=== PATIENT | male | born 1935 | race Caucasian/White ===

== ENCOUNTER 2019-11-05 05:16 | Inpatient (IN) ==
[2019-11-05] MEDS ORDERED: methylPREDNISolone 125 MG/2 ML VIAL IVP ONE (05:30)
[2019-11-05] MEDS ORDERED: 0.9 % Sodium Chloride 1,000 ML IVC ONE (05:36)
[2019-11-05] MEDS ORDERED: Ipratropium Neb 0.5 MG NEBULIZER IH ONE (05:45)
[2019-11-05] MEDS ORDERED: Levalbuterol Neb 1.25 MG/3 ML IH ONE (05:45)
[2019-11-05] MEDS ORDERED: Isovue-370 500 ML BOTTLE IVP ONE (05:46)
[2019-11-05 05:54] LABS: Basophils # 0.1 K/mcL (0.0-0.2); Basophils % 0.5 %; Eosinophils # 0.1 K/mcL (0.0-0.6); Eosinophils % 1.2 %; Hematocrit 40.9 % (37.5-50.1); Immature Granulocytes % 0.4 % (0-4); Lymphocytes # 1.7 K/mcL (0.6-4.6); Lymphocytes % 14.7 %; Mean Corpuscular HGB Conc 34.2 g/dL (31.6-35.5); Mean Corpuscular Hemoglobin 32.2 pg (28.0-33.3); Mean Platelet Volume 9.4 fL (9.4-12.4); Monocytes # 0.9 K/mcL (0.0-1.3); Neutrophils # 8.5 K/mcL (1.6-8.9); Platelet Count 224 K/mcL (140-400); Red Blood Count 4.35 M/mcL (4.19-5.50); Red Cell Distribution Width 13.3 % (11.5-14.5); Segmented Neutrophils % 75.2 %; White Blood Count 11.3 K/mcL (4.3-11.1)
[2019-11-05 05:56] LABS: INR 1.2; Prothrombin Time 13.1 Seconds (9.4-12.1)
[2019-11-05] MEDS ORDERED: Furosemide 40 MG/4 ML VIAL IVP ONE (06:31)
[2019-11-05 06:37] LABS: Alanine Aminotransferase 15 Units/L (7-52); Albumin 4.3 g/dL (3.5-5.7); Albumin/Globulin Ratio 1.4 (1.1-2.2); Alkaline Phosphatase 69 Units/L (34-104); Aspartate Amino Transferase 14 Units/L (13-39); BUN/Creatinine Ratio 9 (6-26); Bilirubin,Direct 0.2 mg/dL (0.0-0.2); Bilirubin,Indirect 0.7 mg/dL (0.0-1.0); Bilirubin,Total 0.9 mg/dL (0.3-1.0); Blood Urea Nitrogen 8 mg/dL (8-23); Calcium 9.4 mg/dL (8.6-10.3); Carbon Dioxide 26 mEq/L (23-29); Chloride 95 mEq/L (98-107); Globulin 3.1 g/dL (2.4-3.5); Glucose 189 mg/dL (70-105); Lipase 11 Units/L (11-82); Osmolality,Calculated 283 (280-300); Potassium 4.2 mEq/L (3.5-5.1); Sodium 135 mEq/L (136-145); Total Protein 7.4 g/dL (6.4-8.9); eGFR For African Americans > 60 (> 60); eGFR For Non-African Americans > 60 (> 60)
[2019-11-05 06:45] LABS: Troponin I 0.03 ng/mL (< 0.04)
[2019-11-05 07:33] LABS: Bilirubin,Urine Negative (Negative); Blood,Urine Negative (Negative); Clarity,Urine Clear (Clear); Color,Urine Yellow (Yellow); Glucose,Urine (UA) Normal (Normal); Ketones,Urine Negative (Negative); Leukocyte Esterase,Urine Negative (Negative); Nitrite,Urine Negative (Negative); PH,Urine 6.5 pH Units (5.0-8.0); Protein,Urine Negative (Neg-Trace); Specific Gravity,Urine 1.017 (1.010-1.025); Urobilinogen,Urine Normal (Normal)
[2019-11-05 07:48] LABS: VBG HCO3 28 mEq/L (21-27); VBG PCO2 63 mmHg (41-51); VBG PH 7.26 pH Units (7.32-7.42); VBG PO2 40 mmHg (25-50)
[2019-11-05] MEDS ORDERED: Naloxone 0.4 MG/ML INJ IVP PRN (07:51)
[2019-11-05] MEDS ORDERED: Melatonin 3 MG TABLET PO PRN (08:48)
[2019-11-05 08:58] VITALS: BP 125/67
[2019-11-05] MEDS ORDERED: Aspirin Enteric Coated 81 MG Tablet PO SCH (09:00)
[2019-11-05] MEDS ORDERED: Insulin DETEMIR 100 UNIT/ML X5UNITS SQ SCH (09:00)
[2019-11-05] MEDS ORDERED: *HR* Amiodarone 200 MG TABLET PO SCH (09:00)
[2019-11-05] MEDS ORDERED: Gabapentin 400 MG CAPSULE PO SCH (09:00)
[2019-11-05] MEDS ORDERED: *HR* Dextrose 50 % in Water (Syg) 50 ML SYRINGE IVP PRN (09:06)
[2019-11-05] MEDS ORDERED: Dextrose Gel 15 GM/37.5 ML TUBE PO PRN ×2 (09:06)
[2019-11-05] MEDS ORDERED: D5% in Water 1,000 ML IVC PRN (09:06)
[2019-11-05] MEDS ORDERED: Levalbuterol Neb 0.63 MG/3 ML IH SCH (10:00)
[2019-11-05] MEDS ORDERED: Insulin LISPRO 300 UNITS/3 ML VIAL SQ SCH (12:00)
[2019-11-05] MEDS ORDERED: Furosemide 40 MG/4 ML VIAL IVP SCH (17:00)
[2019-11-05] MEDS ORDERED: *HR* Heparin 5,000 UNIT/ML VIAL SQ SCH (18:00)
[2019-11-05] MEDS ORDERED: Budesonide/Formoterol 160/4.5 1 PUFF INH IH SCH (22:00)
== END 2019-11-05 10:42 | disposition left against medical advice (07) | DRG 291 ==
LOC: 2NENU 05:16 → EMEROOARM 05:16 → 2NENU 08:40
PROVIDERS: ADMIT Internal Medicine; ATTEND Internal Medicine

== ENCOUNTER 2020-02-10 16:30 | Inpatient (IN) ==
[2020-02-10] MEDS ORDERED: *HR* FentaNYL (PF) 100 MCG/2 ML VIAL IVP ONE ×2 (16:39→18:10)
[2020-02-10 17:08] LABS: INR 1.1; Prothrombin Time 12.7 Seconds (9.4-12.1)
[2020-02-10] MEDS ORDERED: Tdap (Boostrix) Vaccine 0.5 ML SYRINGE IM ONE (17:08)
[2020-02-10 17:09] LABS: Basophils % 0.6 %; Eosinophils # 0.1 K/mcL (0.0-0.6); Hematocrit 42.6 % (37.5-50.1); Hemoglobin 13.9 g/dL (12.9-16.9); Immature Granulocytes % 0.6 % (0-4); Lymphocytes % 15.2 %; Mean Corpuscular HGB Conc 32.6 g/dL (31.6-35.5); Mean Corpuscular Hemoglobin 31.2 pg (28.0-33.3); Mean Corpuscular Volume 95.5 fL (83.0-100.0); Monocytes # 0.4 K/mcL (0.0-1.3); Monocytes % 6.3 %; Neutrophils # 5.2 K/mcL (1.6-8.9); Platelet Count 143 K/mcL (140-400); Red Blood Count 4.46 M/mcL (4.19-5.50); Red Cell Distribution Width 13.9 % (11.5-14.5); Segmented Neutrophils % 76.3 %; White Blood Count 6.8 K/mcL (4.3-11.1)
[2020-02-10 17:24] LABS: BUN/Creatinine Ratio 16 (6-26); Blood Urea Nitrogen 17 mg/dL (8-23); Calcium 8.9 mg/dL (8.6-10.3); Carbon Dioxide 28 mEq/L (23-29); Chloride 100 mEq/L (98-107); Glucose 185 mg/dL (70-105); Osmolality,Calculated 290 (280-300); Potassium 3.5 mEq/L (3.5-5.1); Sodium 137 mEq/L (136-145); eGFR For African Americans > 60 (> 60); eGFR For Non-African Americans > 60 (> 60)
[2020-02-10] MEDS ORDERED: Naloxone 0.4 MG/ML INJ IVP PRN (18:20)
[2020-02-10] MEDS ORDERED: Ondansetron 4 MG/2 ML VIAL IVP PRN (18:20)
[2020-02-10] MEDS ORDERED: Morphine Sulfate 2 MG/ML SYRINGE IVP PRN (18:33)
[2020-02-10] MEDS ORDERED: *HR* HYDROmorphone (PF) 1 MG/ML SYRINGE IVP ONE (19:16)
[2020-02-10] MEDS ORDERED: Acetaminophen 325 MG TABLET PO PRN (19:24)
[2020-02-10] MEDS ORDERED: *HR* OxyCODONE Immed Rel 5 MG TABLET PO ONE (20:59)
[2020-02-10] MEDS ORDERED: 0.9 % Sodium Chloride 1,000 ML IVC SCH (21:15)
[2020-02-10] MEDS ORDERED: Perflutren Lipid Microsphere 1.3 ML in 0.9 % Sodium Chloride 8.7 ML IVP ONE (21:35)
[2020-02-10] MEDS: Gabapentin 100 MG CAPSULE PO SCH (22:31)
[2020-02-11 05:08] LABS: Basophils % 0.4 %; Hemoglobin 13.7 g/dL (12.9-16.9); Immature Granulocytes % 0.3 % (0-4)
[2020-02-11 05:10] LABS: Eosinophils # 0.1 K/mcL (0.0-0.6); Eosinophils % 0.8 %; Hematocrit 42.1 % (37.5-50.1); Immature Platelets 4.9 % (1.1-6.1); Lymphocytes # 1.1 K/mcL (0.6-4.6); Mean Corpuscular HGB Conc 32.5 g/dL (31.6-35.5); Mean Corpuscular Hemoglobin 31.2 pg (28.0-33.3); Mean Corpuscular Volume 95.9 fL (83.0-100.0); Monocytes # 0.6 K/mcL (0.0-1.3); Neutrophils # 5.7 K/mcL (1.6-8.9); Platelet Count 142 K/mcL (140-400); Red Blood Count 4.39 M/mcL (4.19-5.50); Red Cell Distribution Width 13.9 % (11.5-14.5); Segmented Neutrophils % 76.5 %; White Blood Count 7.5 K/mcL (4.3-11.1)
[2020-02-11 05:24] LABS: BUN/Creatinine Ratio 14 (6-26); Blood Urea Nitrogen 15 mg/dL (8-23); Calcium 9.1 mg/dL (8.6-10.3); Carbon Dioxide 33 mEq/L (23-29); Chloride 100 mEq/L (98-107); Glucose 131 mg/dL (70-105); Osmolality,Calculated 291 (280-300); Potassium 3.8 mEq/L (3.5-5.1); Sodium 139 mEq/L (136-145); eGFR For African Americans > 60 (> 60); eGFR For Non-African Americans > 60 (> 60)
[2020-02-11 05:29] LABS: Platelet Estimate Decreased (Normal); Reactive Lymphocytes Present (Not Present)
[2020-02-11] MEDS ORDERED: ceFAZolin 2,000 MG in Water for inj. (sterile) 20 ML IVP ONE (07:23)
[2020-02-11] MEDS ORDERED: *HR* FentaNYL (PF) 100 MCG/2 ML VIAL ONE (07:31)
[2020-02-11] MEDS ORDERED: *HR* Propofol 200 MG/20 ML VIAL IVP ONE (07:31)
[2020-02-11] MEDS ORDERED: Dexamethasone 4 MG/ML VIAL ONE (07:35)
[2020-02-11] MEDS ORDERED: Ondansetron 4 MG/2 ML VIAL ONE (07:35)
[2020-02-11] MEDS ORDERED: *HR* Succinylcholine 200 MG/10 ML VIAL IVP ONE (07:35)
[2020-02-11] MEDS ORDERED: Lidocaine -MPF 2% 2 ML VIAL ONE (07:35)
[2020-02-11] MEDS ORDERED: Lidocaine -MPF 4% 5 ML AMPUL ONE (07:35)
[2020-02-11] MEDS ORDERED: *HR* PHENYLEPHRINE 1,000 MCG/10 ML SYRINGE IVP ONE (07:36)
[2020-02-11] MEDS ORDERED: methylPREDNISolone 125 MG/2 ML VIAL ONE (10:04)
[2020-02-11] MEDS ORDERED: Furosemide 20 MG/2 ML VIAL IVP ONE (10:04)
[2020-02-11] MEDS ORDERED: Levalbuterol Neb 1.25 MG/3 ML ONE ×2 (12:13→15:54)
[2020-02-11] MEDS ORDERED: *HR* Metoprolol 5 MG/5 ML VIAL IVP ONE (12:57)
[2020-02-11] MEDS: Levalbuterol Neb 1.25 MG/3 ML IH SCH ×5 (15:58→23:36)
[2020-02-11] MEDS: *HR* Amiodarone 200 MG TABLET PO SCH (18:03)
[2020-02-11] MEDS: Gabapentin 100 MG CAPSULE PO SCH ×3 (18:03→21:51)
[2020-02-11] MEDS: Furosemide 40 MG TABLET PO SCH ×2 (18:03→18:08)
[2020-02-11] MEDS: MethylPREDNISolone 40 MG/ML VIAL IVP SCH (18:08)
[2020-02-11] MEDS ORDERED: polyethylene glycoL 3350 17 GM POWD.PACK PO PRN (18:19)
[2020-02-11] MEDS: Budesonide/Formoterol 160/4.5 1 PUFF INH IH SCH (19:41)
[2020-02-11] MEDS: Melatonin 3 MG TABLET PO SCH (21:42)
[2020-02-12] MEDS: Levalbuterol Neb 1.25 MG/3 ML IH SCH ×5 (04:22→20:05)
[2020-02-12] MEDS: *HR* Metoprolol 5 MG/5 ML VIAL IVP PRN ×2 (05:05→17:11)
[2020-02-12] MEDS: MethylPREDNISolone 40 MG/ML VIAL IVP SCH ×3 (05:05→20:31)
[2020-02-12 05:37] LABS: Basophils % 0.2 %; Hematocrit 41.6 % (37.5-50.1); Hemoglobin 14.1 g/dL (12.9-16.9); Immature Granulocytes % 0.6 % (0-4); Lymphocytes # 0.7 K/mcL (0.6-4.6); Lymphocytes % 6.2 %; Mean Corpuscular HGB Conc 33.9 g/dL (31.6-35.5); Mean Corpuscular Volume 94.3 fL (83.0-100.0); Mean Platelet Volume 10.4 fL (9.4-12.4); Monocytes # 0.6 K/mcL (0.0-1.3); Monocytes % 5.7 %; Neutrophils # 9.4 K/mcL (1.6-8.9); Platelet Count 138 K/mcL (140-400); Red Blood Count 4.41 M/mcL (4.19-5.50); Red Cell Distribution Width 13.8 % (11.5-14.5); Segmented Neutrophils % 87.3 %; White Blood Count 10.7 K/mcL (4.3-11.1)
[2020-02-12 06:07] LABS: BUN/Creatinine Ratio 24 (6-26); Blood Urea Nitrogen 25 mg/dL (8-23); Calcium 9.3 mg/dL (8.6-10.3); Carbon Dioxide 28 mEq/L (23-29); Chloride 99 mEq/L (98-107); Glucose 203 mg/dL (70-105); Magnesium 1.6 mg/dL (1.6-2.6); Osmolality,Calculated 298 (280-300); Phosphorous 3.9 mg/dL (2.7-4.5); Potassium 3.5 mEq/L (3.5-5.1); Sodium 139 mEq/L (136-145); eGFR For African Americans > 60 (> 60); eGFR For Non-African Americans > 60 (> 60)
[2020-02-12] MEDS: Budesonide/Formoterol 160/4.5 1 PUFF INH IH SCH ×2 (08:21→20:05)
[2020-02-12] MEDS: Tiotropium 18 MCG inhalation IH SCH (08:25)
[2020-02-12] MEDS: Aspirin Enteric Coated 81 MG Tablet PO SCH (08:51)
[2020-02-12] MEDS: *HR* Amiodarone 200 MG TABLET PO SCH (08:51)
[2020-02-12] MEDS: Gabapentin 100 MG CAPSULE PO SCH ×4 (08:52→22:42)
[2020-02-12] MEDS: Multivit/Ca/Min/Fe/FA 1 TAB TABLET PO SCH (08:52)
[2020-02-12] MEDS: Cholecalciferol (D-3) 1,000 UNIT (25MCG) TABLET PO SCH (08:52)
[2020-02-12] MEDS ORDERED: D5% in Water 1,000 ML IVC PRN (09:08)
[2020-02-12] MEDS ORDERED: *HR* Dextrose 50 % in Water (Syg) 50 ML SYRINGE IVP PRN (09:08)
[2020-02-12] MEDS ORDERED: Dextrose Gel 15 GM/37.5 ML TUBE PO PRN ×2 (09:08)
[2020-02-12] MEDS ORDERED: *HR* LORazepam 0.5 MG TABLET PO PRN (11:47)
[2020-02-12] MEDS: Furosemide 40 MG/4 ML VIAL IVP SCH ×2 (11:56→20:30)
[2020-02-12] MEDS: Insulin LISPRO 300 UNITS/3 ML VIAL SQ SCH ×2 (12:05→17:26)
[2020-02-12] MEDS: Nicotine 21 MG PATCH.TD24 TD SCH (12:06)
[2020-02-12] MEDS ORDERED: *HR* OxyCODONE Immed Rel 5 MG TABLET PO PRN (13:26)
[2020-02-12] MEDS: *HR* OxyCODONE Immed Rel 5 MG TABLET PO PRN (14:03)
[2020-02-12] MEDS: Melatonin 3 MG TABLET PO SCH (20:31)
[2020-02-12] MEDS ORDERED: Insulin LISPRO 300 UNITS/3 ML VIAL SQ SCH (21:00)
[2020-02-13] MEDS: Levalbuterol Neb 1.25 MG/3 ML IH SCH ×5 (00:10→22:04)
[2020-02-13] MEDS ORDERED: *HR* Metoprolol 5 MG/5 ML VIAL IVP ONE (01:04)
[2020-02-13] MEDS: MethylPREDNISolone 40 MG/ML VIAL IVP SCH ×2 (04:09→13:06)
[2020-02-13 05:53] LABS: Hematocrit 40.6 % (37.5-50.1); Hemoglobin 13.6 g/dL (12.9-16.9); Immature Granulocytes % 1.1 % (0-4); Lymphocytes # 0.6 K/mcL (0.6-4.6); Lymphocytes % 3.9 %; Mean Corpuscular HGB Conc 33.5 g/dL (31.6-35.5); Mean Corpuscular Hemoglobin 31.8 pg (28.0-33.3); Mean Corpuscular Volume 94.9 fL (83.0-100.0); Mean Platelet Volume 10.2 fL (9.4-12.4); Monocytes # 0.6 K/mcL (0.0-1.3); Monocytes % 4.3 %; Neutrophils # 12.8 K/mcL (1.6-8.9); Platelet Count 144 K/mcL (140-400); Red Blood Count 4.28 M/mcL (4.19-5.50); Red Cell Distribution Width 14.1 % (11.5-14.5); Segmented Neutrophils % 90.7 %; White Blood Count 14.1 K/mcL (4.3-11.1)
[2020-02-13] MEDS: Insulin LISPRO 300 UNITS/3 ML VIAL SQ SCH ×3 (05:56→18:40)
[2020-02-13 06:26] LABS: BUN/Creatinine Ratio 38 (6-26); Blood Urea Nitrogen 50 mg/dL (8-23); Calcium 9.1 mg/dL (8.6-10.3); Carbon Dioxide 28 mEq/L (23-29); Chloride 102 mEq/L (98-107); Glucose 283 mg/dL (70-105); Osmolality,Calculated 314 (280-300); Phosphorous 3.4 mg/dL (2.7-4.5); Potassium 3.9 mEq/L (3.5-5.1); Sodium 140 mEq/L (136-145); eGFR For African Americans > 60 (> 60); eGFR For Non-African Americans 53 (> 60)
[2020-02-13] MEDS: Furosemide 40 MG/4 ML VIAL IVP SCH (09:38)
[2020-02-13] MEDS: Gabapentin 100 MG CAPSULE PO SCH ×2 (09:39→09:40)
[2020-02-13] MEDS: Cholecalciferol (D-3) 1,000 UNIT (25MCG) TABLET PO SCH (09:39)
[2020-02-13] MEDS: Aspirin Enteric Coated 81 MG Tablet PO SCH (09:39)
[2020-02-13] MEDS: *HR* Amiodarone 200 MG TABLET PO SCH (09:39)
[2020-02-13] MEDS: Multivit/Ca/Min/Fe/FA 1 TAB TABLET PO SCH (09:39)
[2020-02-13] MEDS: Nicotine 21 MG PATCH.TD24 TD SCH (09:40)
[2020-02-13] MEDS: Tiotropium 18 MCG inhalation IH SCH (09:54)
[2020-02-13] MEDS: Budesonide/Formoterol 160/4.5 1 PUFF INH IH SCH ×2 (09:54→20:20)
[2020-02-13] MEDS ORDERED: Piperacillin/Tazobactam 3.375 GM in 0.9 % Sodium Chloride Mini Bag 100 ML IVPB SCH (13:00)
[2020-02-13] MEDS: *HR* OxyCODONE Immed Rel 5 MG TABLET PO PRN (14:41)
[2020-02-13] MEDS ORDERED: Insulin DETEMIR 100 UNIT/ML X5UNITS SQ SCH ×2 (21:00)
[2020-02-13] MEDS ORDERED: Ipratropium/Albuterol Neb 3 ML ONE (21:02)
[2020-02-13] MEDS ORDERED: *HR* FentaNYL (PF) 100 MCG/2 ML VIAL ONE (21:09)
[2020-02-13] MEDS ORDERED: *HR* Propofol 200 MG/20 ML VIAL IVP ONE (21:09)
[2020-02-13] MEDS ORDERED: Levalbuterol Neb 1.25 MG/3 ML IH STA (22:26)
[2020-02-13] MEDS: *HR* Labetalol 20 MG/4 ML SYRINGE IVP PRN ×2 (22:27→22:42)
[2020-02-13] MEDS ORDERED: *HR* Labetalol 20 MG/4 ML SYRINGE IVP ONE (22:27)
[2020-02-14] MEDS ORDERED: *HR* Dextrose 50 % in Water (Syg) 50 ML SYRINGE IVP PRN (00:38)
[2020-02-14] MEDS ORDERED: Ondansetron 4 MG/2 ML VIAL IVP PRN (00:38)
[2020-02-14] MEDS ORDERED: polyethylene glycoL 3350 17 GM POWD.PACK PO PRN (00:38)
[2020-02-14] MEDS ORDERED: D5% in Water 1,000 ML IVC PRN (00:38)
[2020-02-14] MEDS ORDERED: *HR* LORazepam 0.5 MG TABLET PO PRN (00:38)
[2020-02-14] MEDS ORDERED: Dextrose Gel 15 GM/37.5 ML TUBE PO PRN ×2 (00:38)
[2020-02-14] MEDS ORDERED: *HR* OxyCODONE Immed Rel 5 MG TABLET PO PRN ×2 (00:38)
[2020-02-14] MEDS ORDERED: Acetaminophen 325 MG TABLET PO PRN (00:38)
[2020-02-14] MEDS ORDERED: Naloxone 0.4 MG/ML INJ IVP PRN (00:38)
[2020-02-14] MEDS ORDERED: Haloperidol Lactate 5 MG/ML VIAL IVP ONE (01:15)
[2020-02-14] MEDS: ceFAZolin 2,000 MG in 0.9 % Sodium Chloride 100 ML IVPB SCH ×2 (02:10→10:13)
[2020-02-14] MEDS: MethylPREDNISolone 40 MG/ML VIAL IVP SCH ×3 (03:51→21:39)
[2020-02-14] MEDS: Levalbuterol Neb 1.25 MG/3 ML IH SCH ×6 (04:32→23:59)
[2020-02-14 04:50] LABS: Hematocrit 39.1 % (37.5-50.1); Hemoglobin 12.8 g/dL (12.9-16.9)
[2020-02-14] MEDS: Insulin LISPRO 300 UNITS/3 ML VIAL SQ SCH ×3 (06:10→18:32)
[2020-02-14 08:26] LABS: Basophils % 0.1 %; Hematocrit 41.1 % (37.5-50.1); Hemoglobin 13.5 g/dL (12.9-16.9); Immature Granulocytes % 1.1 % (0-4); Lymphocytes # 0.3 K/mcL (0.6-4.6); Lymphocytes % 2.4 %; Mean Corpuscular HGB Conc 32.8 g/dL (31.6-35.5); Mean Corpuscular Hemoglobin 32.1 pg (28.0-33.3); Mean Corpuscular Volume 97.6 fL (83.0-100.0); Mean Platelet Volume 9.9 fL (9.4-12.4); Monocytes # 0.8 K/mcL (0.0-1.3); Monocytes % 5.7 %; Platelet Count 142 K/mcL (140-400); Red Blood Count 4.21 M/mcL (4.19-5.50); Red Cell Distribution Width 14.6 % (11.5-14.5); Segmented Neutrophils % 90.7 %; White Blood Count 13.2 K/mcL (4.3-11.1)
[2020-02-14 08:51] LABS: BUN/Creatinine Ratio 40 (6-26); Blood Urea Nitrogen 49 mg/dL (8-23); Calcium 9.2 mg/dL (8.6-10.3); Carbon Dioxide 31 mEq/L (23-29); Chloride 103 mEq/L (98-107); Glucose 214 mg/dL (70-105); Osmolality,Calculated 315 (280-300); Sodium 143 mEq/L (136-145); eGFR For African Americans > 60 (> 60); eGFR For Non-African Americans 57 (> 60)
[2020-02-14] MEDS: Multivit/Ca/Min/Fe/FA 1 TAB TABLET PO SCH (10:04)
[2020-02-14] MEDS: Gabapentin 100 MG CAPSULE PO SCH ×2 (10:04→21:33)
[2020-02-14] MEDS: Nicotine 21 MG PATCH.TD24 TD SCH (10:05)
[2020-02-14] MEDS: Aspirin Enteric Coated 81 MG Tablet PO SCH (10:05)
[2020-02-14] MEDS: Cholecalciferol (D-3) 1,000 UNIT (25MCG) TABLET PO SCH (10:06)
[2020-02-14] MEDS: Furosemide 40 MG/4 ML VIAL IVP SCH ×2 (10:06→21:35)
[2020-02-14] MEDS: Budesonide/Formoterol 160/4.5 1 PUFF INH IH SCH ×2 (10:15→20:05)
[2020-02-14] MEDS: Tiotropium 18 MCG inhalation IH SCH (10:15)
[2020-02-14] MEDS: *HR* Metoprolol 5 MG/5 ML VIAL IVP PRN ×2 (10:33→18:33)
[2020-02-14 10:52] LABS: ABG Base Excess 8 mEq/L (-2 to 3); ABG HCO3 34 mEq/L (21-27); ABG Oxygen Saturation 97 % (95-98); ABG PCO2 49 mmHg (35-45); ABG PH 7.45 pH Units (7.32-7.45); ABG PO2 91 mmHg (85-104); ABG TCO2 35 mEq/L (20-26); Blood Gas Modality NIV
[2020-02-14] MEDS ORDERED: Insulin DETEMIR 100 UNIT/ML X5UNITS SQ ONE (13:00)
[2020-02-14] MEDS: Piperacillin/Tazobactam 3.375 GM in 0.9 % Sodium Chloride Mini Bag 100 ML IVPB SCH (18:32)
[2020-02-14] MEDS ORDERED: Melatonin 3 MG TABLET PO SCH (21:00)
[2020-02-14] MEDS ORDERED: Insulin DETEMIR 100 UNIT/ML X5UNITS SQ SCH ×2 (21:00)
[2020-02-15] MEDS: Insulin LISPRO 300 UNITS/3 ML VIAL SQ SCH ×2 (00:27→06:13)
[2020-02-15] MEDS: Piperacillin/Tazobactam 3.375 GM in 0.9 % Sodium Chloride Mini Bag 100 ML IVPB SCH ×2 (01:30→09:10)
[2020-02-15] MEDS: Levalbuterol Neb 1.25 MG/3 ML IH SCH ×3 (03:26→11:27)
[2020-02-15] MEDS: MethylPREDNISolone 40 MG/ML VIAL IVP SCH ×2 (04:34→12:08)
[2020-02-15] MEDS: Budesonide/Formoterol 160/4.5 1 PUFF INH IH SCH (07:10)
[2020-02-15] MEDS: Tiotropium 18 MCG inhalation IH SCH (07:10)
[2020-02-15 08:27] LABS: Basophils % 0.2 %; Hematocrit 40.5 % (37.5-50.1); Hemoglobin 13.2 g/dL (12.9-16.9); Immature Granulocytes % 1.1 % (0-4); Lymphocytes # 0.6 K/mcL (0.6-4.6); Lymphocytes % 5.1 %; Mean Corpuscular HGB Conc 32.6 g/dL (31.6-35.5); Mean Corpuscular Hemoglobin 32.1 pg (28.0-33.3); Mean Corpuscular Volume 98.5 fL (83.0-100.0); Mean Platelet Volume 10.3 fL (9.4-12.4); Monocytes # 0.5 K/mcL (0.0-1.3); Neutrophils # 10.2 K/mcL (1.6-8.9); Platelet Count 148 K/mcL (140-400); Red Blood Count 4.11 M/mcL (4.19-5.50); Red Cell Distribution Width 14.4 % (11.5-14.5); Segmented Neutrophils % 89.6 %; White Blood Count 11.4 K/mcL (4.3-11.1)
[2020-02-15 08:46] LABS: BUN/Creatinine Ratio 39 (6-26); Blood Urea Nitrogen 53 mg/dL (8-23); Carbon Dioxide 32 mEq/L (23-29); Chloride 106 mEq/L (98-107); Glucose 180 mg/dL (70-105); Osmolality,Calculated 319 (280-300); Sodium 145 mEq/L (136-145); eGFR For African Americans > 60 (> 60); eGFR For Non-African Americans 50 (> 60)
[2020-02-15] MEDS: Aspirin Enteric Coated 81 MG Tablet PO SCH (09:09)
[2020-02-15] MEDS: Cholecalciferol (D-3) 1,000 UNIT (25MCG) TABLET PO SCH (09:09)
[2020-02-15] MEDS: Furosemide 40 MG/4 ML VIAL IVP SCH (09:09)
[2020-02-15] MEDS: Gabapentin 100 MG CAPSULE PO SCH (09:10)
[2020-02-15] MEDS: Nicotine 21 MG PATCH.TD24 TD SCH (09:10)
[2020-02-15] MEDS: Multivit/Ca/Min/Fe/FA 1 TAB TABLET PO SCH (09:10)
[2020-02-15] MEDS ORDERED: Insulin LISPRO 300 UNITS/3 ML VIAL SQ SCH ×3 (11:30→21:00)
[2020-02-15 11:57] VITALS: BP 120/86
[2020-02-15] MEDS ORDERED: *HR* LORazepam Oral Conc 2 MG/ML SL PRN (11:59)
[2020-02-15] MEDS ORDERED: Atropine Sulfate 1% 40 DROP/2 ML BOTTLE SL PRN (12:10)
[2020-02-15] MEDS ORDERED: Scopolamine Patch 1.5 MG PATCH.TD72 TD SCH (12:15)
[2020-02-15] MEDS ORDERED: Aminoglycoside Consult 1 EACH MC ONE (15:01)
[2020-02-15] MEDS ORDERED: Insulin DETEMIR 100 UNIT/ML X5UNITS SQ SCH (21:00)
== END 2020-02-15 15:02 | disposition hospice, home (50) | DRG 480 ==
LOC: EMEROOARM 16:30 → 3NENU 16:30 → SUATTDRO 18:32 → 3NENU 18:41 → 2ANU 02-13 23:32
PROVIDERS: ADMIT Family Medicine; ATTEND Student in an Organized Health Care Education/Training Program